=== PATIENT | female | born 1995 | race Caucasian/White ===

== ENCOUNTER 2018-05-29 23:05 | Inpatient (IN) | payer MEDICAID ==
[~2018-05-29] VITALS: Ht 167.6 cm; Wt 52.3 kg
--- NOTE | 2018-05-30 00:33 | NUR ---
Dr. Floyd at bedside for MSE.
[2018-05-30] MEDS ORDERED: diphenhydrAMINE 50 MG CAPSULE ONE (00:56)
[2018-05-30] MEDS ORDERED: predniSONE 20 MG TABLET ONE (00:57)
[2018-05-30] MEDS ORDERED: predniSONE 20 MG TABLET PO ONE (01:00)
[2018-05-30] MEDS ORDERED: diphenhydrAMINE 50 MG CAPSULE PO ONE (01:00)
[2018-05-30] MEDS ORDERED: EPINEPHRINE 1 MG/1 ML AMP SQ ONE (01:30)
[2018-05-30] MEDS ORDERED: IV NORMAL SALINE 1000 ML BAG IV ONE (01:30)
[2018-05-30] MEDS ORDERED: methylPREDNISolone SOD SUCC 125 MG/2 ML VIAL IV ONE (01:30)
[2018-05-30] MEDS ORDERED: methylPREDNISolone SOD SUCC 125 MG/2 ML VIAL ONE (01:50)
[2018-05-30] MEDS ORDERED: EPINEPHRINE 1 MG/1 ML AMP ONE (01:53)
[2018-05-30 01:58] LABS: BASOPHILS # (AUTO) 0.1 K/uL (0.0-8.0); EOSINOPHILS # (AUTO) 0.1 K/uL (0.0-0.7); EOSINOPHILS % (AUTO) 2.3 % (0.0-7.0); HEMATOCRIT 38.2 % (31.2-41.9); HEMOGLOBIN 13.1 g/dL (10.9-14.3); LYMPHOCYTES % (AUTO) 45.8 % (20.5-51.5); MEAN CORPUSCULAR HEMOGLOBIN 31.8 uug (24.7-32.8); MEAN CORPUSCULAR HGB CONC 34 g/dL (32.3-35.6); MEAN CORPUSCULAR VOLUME 92.7 fL (75.5-95.3); MONOCYTES # (AUTO) 0.5 K/uL (2.0-10.0); NEUTROPHILS # (AUTO) 2.8 K/uL (1.8-8.9); NEUTROPHILS % (AUTO) 43.9 % (38.5-71.5); PLATELET COUNT (AUTO) 221 K/uL (179-408); RED BLOOD CELL COUNT(AUTO) 4.13 MIL/uL (3.63-4.92); WHITE BLOOD COUNT (AUTO) 6.5 K/uL (3.8-11.8)
[2018-05-30 02:07] LABS: CREATININE 0.6 mg/dL (0.6-1.3)
[2018-05-30 02:13] LABS: BILIRUBIN,DIRECT 0.1 mg/dL (0.0-0.2); BILIRUBIN,TOTAL 0.4 mg/dL (0.2-1.0); TOTAL PROTEIN, SERUM 7.6 g/dL (6.4-8.2)
--- NOTE | 2018-05-30 03:05 | NUR ---
Dr. Floyd on panel call with Dr. Martín Rascon. Patient admitted to Tele, diagnosis Angioedema.
--- NOTE | 2018-05-30 04:15 | NUR ---
Report given to Franky LOYOLA Tele.
--- NOTE | 2018-05-30 04:25 | NUR ---
Xray at bedside.
--- NOTE | 2018-05-30 04:58 | NUR ---
PT WAS BROUGHT IN TO FLOOR VIA WHEELCHAIR. IN NO ACUTE SIGN OF DISTRESS. ADMITTED TO TELE UNDER TSERING JOVEL DNP. DX ANGIOEDEMA. INITIATE ADMISSION ASSESSMENT. BELONGING LISTS REVIEWED. WILL CALL FOR ORDERS.
[2018-05-30 05:20] VITALS: BP 97/41
[2018-05-30] MEDS ORDERED: ALBUTEROL SULFATE 2.5 MG/3 ML NEBU NEB PRN (06:00)
[2018-05-30] MEDS ORDERED: ACETAMINOPHEN 325 MG TABLET PO PRN (06:00)
[2018-05-30] MEDS ORDERED: ONDANSETRON 4 MG/2 ML VIAL IV PRN (06:00)
[2018-05-30] MEDS ORDERED: ZOLPIDEM 5 MG TABLET PO PRN (06:00)
[2018-05-30] MEDS ORDERED: HYDROCODONE/APAP 5-325MG TABLET PO PRN (06:00)
[2018-05-30] MEDS ORDERED: IV NS 1000 ML 1,000 ML IV PRN (06:00)
[2018-05-30] MEDS ORDERED: diphenhydrAMINE 50 MG/1 ML VIAL IV PRN (06:00)
[2018-05-30] MEDS ORDERED: MAGNESIUM HYDROXIDE 30 ML LIQUID UDC PO PRN (06:00)
[2018-05-30] MEDS: methylPREDNISolone SOD SUCC 40 MG/ML VIAL IV SCH ×3 (06:28→21:11)
--- NOTE | 2018-05-30 08:00 | NUR ---
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 NO SS OF PAIN OR SOB. NOTED UPPER AND LOWER LIPS STILL SLIGHTLY SWOLLEN. CLOSELY MONITORED
[2018-05-30] MEDS ORDERED: INFLUENZA VACCINE 2018-2019 0.5 ML DISP.SYRIN IM ONE (09:00)
[2018-05-30 10:32] LABS: *URINE HCG, QUAL NEGATIVE (NEGATIVE)
--- NOTE | 2018-05-30 11:00 | NUR ---
SEEN BY DRY CHAIN OFFBEARER MED [facility]Z FOLLOW-UP SEE NOTES. DENIES PAIN OR SOB. OBSERVED
[2018-05-30 11:09] VITALS: BP 101/49
[2018-05-30 15:02] VITALS: BP 104/50
--- NOTE | 2018-05-30 16:38 | NUR ---
NO ACUTE CHANGE. CONTINUE WITH TELE MONITORING SR AT 60 TO 65
[2018-05-30 20:00] VITALS: BP 102/49
[2018-05-30] MEDS ORDERED: DIPH25CA83 PO (20:31)
[2018-05-30] MEDS ORDERED: FAMO-132 PO (20:31)
--- NOTE | 2018-05-30 20:52 | NUR ---
PT STATED SHE ALREADY HAD THE FLU SHOT RECENTLY. Addendum: 05/30/18 at 2052 by DONALD LUNSFORD RN Amended: Links added.
[2018-05-31] VITALS: BP 97/52
--- NOTE | 2018-05-31 01:10 | NUR ---
PT HAS BEEN DISCHARGED PER MD ORDER SINCE 2099, HAD NO RIDE UNTIL NOW. DISCHARGE INSTRUCTIONS WERE GIVEN BY DR ROBERTS, REVIEWED DISCHARGE INSTRUCTIONS WITH PT AND FRIEND. PT WAS EDUCATED ABOUT HER MEDICATION AND WHEN TO COME BACK TO THE HOSPITAL IF NEED BE. PT VERBALIZED HER UNDERSTANDING, ALL QUESTIONED ANSWERED. ALL NEEDS MET, IV REMOVED. PT LEFT WITH FRIEND VIA PRIVATE CAR.
== END 2018-05-31 01:05 | disposition home or self-care (01) | DRG 811 ==
LOC: ER 23:05 → TELE 05-30 04:19
PROVIDERS: ADMIT Hospitalist; ATTEND Internal Medicine
DX: T78.3XXA Angioneurotic edema, initial encounter (principal); I45.81 Long QT syndrome; R06.03 Acute respiratory distress
CPT/HCPCS: 36415; 71045; 84703; 85025; 90686; 93005; A4663; G0378; J0171; J2920; J2930; J7030; J7512; Q0163

== ENCOUNTER 2018-12-10 14:50 | Emergency (ER) | payer MEDICAID ==
[~2018-12-10] VITALS: Ht 160 cm; Wt 49.9 kg
[~2018-12-10 14:50] MED LIST: DIPH25CA83 PO; FAMO-132 PO
[2018-12-10 15:19] LABS: *BILIRUBIN,URIN NEGATIVE (NEGATIVE); *BLOOD, URINE NEGATIVE (NEGATIVE); *CLARITY,URINE CLEAR (CLEAR); *COLOR,URINE LIGHT YELLOW (YELLOW); *KETONES,URINE NEGATIVE (NEGATIVE); *UROBILINOGEN,URINE 0.2 E.U./dl (NORMAL); LEUKOCYTE ESTERASE ,URINE TRACE (NEGATIVE); NITRITE, URINE NEGATIVE (NEGATIVE); PH,URINE 8.5 (5.0-8.0); UGLUCOSE NEGATIVE (NEGATIVE)
[2018-12-10 15:24] LABS: *URINE HCG, QUAL NEGATIVE (NEGATIVE)
[2018-12-10] MEDS ORDERED: FLUCONAZOLE 100 MG TABLET ONE (15:26)
[2018-12-10] MEDS ORDERED: FLUCONAZOLE 100 MG TABLET PO ONE (15:30)
[2018-12-10 15:54] LABS: SQUAMOUS EPITHELIAL CELL,UR FEW /HPF (NONE SEEN); WBC,URINE 0-3 /HPF (0-3)
--- NOTE | 2018-12-10 16:14 | NUR ---
Patient discharged to home in stable conditon & brisk steady gait. Written and verbal after care instructions given to patient and partner. Patient & partner verbalized understanding of instructions.
== END 2018-12-10 16:14 | disposition home or self-care (01) ==
LOC: ER 14:50
DX: B37.3 Candidiasis of vulva and vagina (principal); Z79.899 Other long term (current) drug therapy
CPT/HCPCS: 84703; A4663